=== PATIENT | male | born 1955 | race Caucasian/White ===

== ENCOUNTER 2016-11-07 06:11 | Inpatient (IN) | payer BC ==
[~2016-11-07 06:11] MED LIST: Buffered Lidocaine 1% SYRIN* 3 ML/SYR SYRINGE INTRADERM ONE; Famotidine TAB* 20 MG PO ONE; Gabapentin CAP(*) 400 MG PO ONE; Ibuprofen TAB* 800 MG PO ONE; Metoclopramide TAB* 10 MG PO ONE; Sodium Citrate/Citric Acid* 15 ML UDC PO ONE
[2016-11-07] MEDS ORDERED: Bupivacaine 0.5% W/EPI SDV* 30 ML VIAL ONE (07:53)
[2016-11-07] MEDS ORDERED: Gabapentin CAP(*) 300 MG ONE (07:55)
[2016-11-07] MEDS ORDERED: Ibuprofen TAB* 400 MG ONE (07:55)
[2016-11-07] MEDS ORDERED: Metoclopramide TAB* 10 MG ONE (07:55)
[2016-11-07] MEDS ORDERED: Sodium Citrate/Citric Acid* 15 ML UDC ONE (07:55)
[2016-11-07] MEDS ORDERED: Famotidine TAB* 20 MG ONE (07:55)
[2016-11-07] MEDS ORDERED: ceFAZolin 2 GM PREMIX(*) 2 GM/50 ML BAG IVPB ONE (07:56)
[2016-11-07] MEDS ORDERED: Midazolam* 1 MG/ML 5 ML VIAL (5 MG) ONE (08:59)
[2016-11-07] MEDS ORDERED: fentaNYL* 50 MCG/ML 2 ML VIAL (100 MCG VIAL) ONE (08:59)
[2016-11-07] MEDS ORDERED: Morphine PF AMP (0.5MG/ML)* 5 MG/10 ML AMP ONE (08:59)
[2016-11-07] MEDS ORDERED: Bupivacaine 0.5% SDV PF* 30 ML VIAL ONE (09:00)
[2016-11-07] MEDS ORDERED: Naloxone* 0.4 MG/ML 1 ML VIAL IV PRN (10:11)
[2016-11-07] MEDS ORDERED: HYDROcodone/ACETAMIN 5-325 MG* 1 TAB PO PRN (10:11)
[2016-11-07] MEDS ORDERED: Nalbuphine* 20 MG/ML 1 ML VIAL IV PRN (10:11)
[2016-11-07] MEDS ORDERED: DiMENhydriNATE IV* 50 MG/ML VIAL IV PUSH PRN (10:11)
[2016-11-07] MEDS ORDERED: Ondansetron INJ* 2 MG/ML VIAL IV PRN ×2 (10:11→12:10)
[2016-11-07] MEDS ORDERED: Midazolam* 1 MG/ML 2 ML VIAL (2 MG) ONE (10:55)
[2016-11-07] MEDS ORDERED: Morphine INJ* 2 MG/ML 1 ML SYRINGE IV PRN (12:10)
[2016-11-07] MEDS ORDERED: LACTULOSE* 30 ML UDC PO PRN (12:10)
[2016-11-07] MEDS ORDERED: diPHENhydraMINE IV* 50 MG/ML 1 ml VIAL (BENADRYL) IV PRN (12:10)
[2016-11-07] MEDS ORDERED: Polyethylene Glycol 3350* 17 GM PACKET PO PRN (12:10)
[2016-11-07] MEDS ORDERED: Magnesium Hydroxide LIQ* 30 ML UDC PO PRN (12:10)
[2016-11-07] MEDS ORDERED: Acetaminophen TAB* 325 MG PO PRN (12:10)
[2016-11-07] MEDS ORDERED: oxyCODONE/Acetamin 5/325 MG* TAB PO PRN (12:10)
[2016-11-07] MEDS ORDERED: Acetaminophen TAB* 325 MG ONE (12:56)
--- NOTE | 2016-11-07 13:29 | RAD ---
Indication: Postop LEFT total knee replacement. Comparison: March 29, 2016 Technique: Portable AP and cross table lateral views LEFT knee. Report: Status post total knee replacement. Anterior cutaneous jojo and surgical drain in place. Post-op fluid and gas is seen in the joint space and anterior subcutaneous tissues. Alignment is anatomic. No periprosthetic fracture evident. IMPRESSION: Normal post-op appearance following LEFT total knee replacement.
[2016-11-07] MEDS: Ibuprofen TAB* 800 MG PO SCH ×2 (17:06→21:02)
[2016-11-07] MEDS: Aspirin TAB* 325 MG PO SCH (17:06)
[2016-11-07] MEDS: ceFAZolin 1 GM in Dextrose (*) 1 GM/50 ML BAG IVPB SCH ×2 (17:07→21:03)
[2016-11-07] MEDS: Docusate CAP* 100 MG PO SCH (21:02)
--- NOTE | 2016-11-07 23:35 | OP ---
DATE OF OPERATION: 11/07/16 - ROOM #349 DATE OF : 55 SURGICAL CARE: Left knee. SURGEON: Wicho Corey MD ASSISTANTS: 1. Rachna Burris, therapeutic massage technician. 2. JEAN CARLOS Ye, was the health assistant. ANESTHESIOLOGIST: Dr. Kike Crowe. ANESTHESIA: Spinal with Duramorph IV sedation. PRE-OP DIAGNOSIS: Severe arthritis of the left knee with varus deformity. POST-OP DIAGNOSIS: Severe arthritis of the left knee with varus deformity. OPERATIVE PROCEDURE: Left total knee replacement. COMPONENTS: Venu Persona knee, size 10 femur, size G tibia, 14 articular surface and a 35 patella. There was a small extension on the tibial tray. COMPLICATIONS: There were no complications. DRAINS: Two blood collection drains, left knee, at the end of the case. BLOOD LOSS: 200 mL. REPLACEMENT: Crystalloid fluid. OPERATIVE INDICATION: Severe arthritis of the left knee with deformity. He is no longer responsive to nonoperative care and a knee replacement was recommended. He had severe arthritis medial, patellofemoral and moderate in the lateral compartment. DESCRIPTION OF PROCEDURE: The patient was brought to the operating room and placed on the operating room table in a supine position. Following the administration of the anesthetic, the patient was returned to the supine position. A Rodriguez catheter was inserted. Dorsalis pedis pulse was noted to be 2+ and the left leg was wrapped with proximal thigh tourniquet, which was sealed off and the leg was given a preliminary chlorhexidine prep and then formal ChloraPrep from the tourniquet to the tips of the toes. The patient had some scratch dermatitis on his left friedman, which was treated carefully as we prepped and it was sealed off during the surgery and it was dressed at the end of the case. After prepping, draping, and sealing off, we did our universal protocol time-out confirming Fabian Galo and a plan for knee replacement. We all agreed and we proceeded. The surgical care was done with the knee acutely flexed and without use of the tourniquet until the clean up and cementing phase of the case. The skin incision went from medial aspect of the tibial tubercle to 2 fingerbreadths proximal to the superior pole of the patella. Skin and subcu divided down to the prepatellar bursa. The prepatellar bursa was traversed and the knee was then entered medial parapatellar dividing the quad tendon at the junction of the rectus femoris and the vastus medialis staying as close to vastus medialis muscle as possible going 3 to 4 cm proximal to the superior pole of the patella. The knee had clear goldish synovial fluid. On the tibia, we went down to the bone just medial to the tibial tubercle going medially. We stayed subperiosteally going around to the deep MCL and then to the posterior medial corner of the knee. The remains of the anterior horn medial meniscus were removed. The patient had complete eburnation of bone, medial femoral condyle, medial tibial plateau with scooping out of the medial tibial plateau anteriorly and medially. Patellofemoral joint had severe arthritis and the lateral compartment moderate. Osteophytes were removed from the intercondylar notch, medial and lateral femoral condyles, and the trochlear side of patellofemoral joint. The distal anterior femur was exposed subperiosteally for referencing and measuring. The ACL and PCL were uplifted from their femoral origins and the tibia was made so that it could be subluxated for from under the femur and the PCL was carefully excised. Great care was taken while working posteriorly with careful hemostasis. The lateral meniscus was then carefully excised. The patella was everted. The infrapatellar fat pad was excised and superior synovectomy around the patella and some medial removal of plica and synovium of the knee going into the suprapatellar pouch. The proximal tibial cut was made first. Our goal here was to have a tibial surface that would be perpendicular to the long axis of the tibia and have a slight posterior slope, removing just 1 or 2 mm medially and 10 to 14 mm laterally. The femoral intramedullary drill was then utilized and the femoral canal was suctioned to discourage embolization. The knee had a flexion contracture of 7 to 8 degrees and the distal femoral cutter was placed on 2 and 6 degrees of valgus and the distal femoral cut carefully completed. The femur was then measured. A 10 was chosen and the femoral cutting block was applied and we completed the anterior, posterior, and chamfering cuts on the distal left femur. We then finished removal of the posterior horn lateral meniscus, posterior horn medial meniscus, some posterior osteophyte. The MCL was carefully preserved. At this stage, we had excellent ligamentous balance in flexion with a 14 block and extension with a 14 block, so this was chosen. The femur was then completed with intercondylar cut out. The femoral canal was cleaned x6, suctioned empty, and a bone plug was inserted. The tibia was completed for a size G and the knee was articulated and extended with a g tibia , 14 articular surface, and a 10 femur with full knee extension, stable ligaments in extension, and stable ligaments in 90 degrees of flexion. The patella was cut flat, 35 was then chosen, and three drill holes were made and these were undercut and a lateral release was not necessary. The leg was then exsanguinated. The tourniquet elevated to 275. The knee was cleaned in extension with 3 L of pulsed saline irrigation and cleaned in flexion with 2 L of pulsed saline irrigation. All surfaces were then dried and the cement was mixed and the components were cemented into position, patella followed by tibia followed by femur; each was impacted. Excess cement was removed, and the knee was articulated and extended during the final hardening. We then checked posteriorly for retained cement. These pieces were carefully removed. We irrigated posteriorly with saline and careful hemostasis checked and achieved. The pericapsular structures were infiltrated with Marcaine 0.5% with epinephrine postero-medially, medially, laterally and then more in the skin and subcu medially. As we closed, we irrigated several times with saline. The drains were brought out through superolateral suprapatellar pouch. The quad mechanism closed with interrupted #1 Polysorb in [id number] fashion, the same with medial retinaculum and more distally we used 0 Polysorb in interrupted and then running fashion. The deep fascia bursa closed with 0 Polysorb and then the superficial subcu closed with 3-0 Polysorb with the knee was extended completely and flexed past 130 degrees several times during the closure. The final closure of the skin was done with jojo and the skin was washed and dried and covered with Betadine soaked release and gauze on the surgery and the drain sites and the dressing then Betadine soaked release, sterile gauze, sterile Webril, Cryotherapy cuff, ABD pads, and a 6-inch To bandage loosely applied. The dorsalis pedis pulse was 2+ at the end of the case and the patient was returned to the recovery room in stable and satisfactory condition having tolerated the procedure very well. CC: Dr. Menjivar* [id number]/[facility] #: [id number] MTDD
[2016-11-08] MEDS: ceFAZolin 1 GM in Dextrose (*) 1 GM/50 ML BAG IVPB SCH (03:32)
[2016-11-08] MEDS: oxyCODONE/Acetamin 5/325 MG* TAB PO PRN ×4 (03:36→21:24)
[2016-11-08 06:01] LABS: Hematocrit 33 % (42-52); Hemoglobin 11.1 g/dl (14.0-18.0)
[2016-11-08 06:23] LABS: BUN/Creatinine Ratio 23.1 (8-20); Calcium 8.5 mg/dL (8.6-10.3); EGFR African American 130.1 (>60); EGFR Non-African American 101.2 (>60)
[2016-11-08] MEDS: oxyCODONE TAB* 5 MG TAB PO PRN (07:09)
[2016-11-08] MEDS: Docusate CAP* 100 MG PO SCH ×2 (08:12→21:25)
[2016-11-08] MEDS: Aspirin TAB* 325 MG PO SCH (08:12)
[2016-11-08] MEDS: Vitamin THERAPEUTIC TAB PO SCH (08:12)
[2016-11-08] MEDS ORDERED: Aspirin TAB* 325 MG PO SCH (09:00)
[2016-11-09] MEDS: oxyCODONE/Acetamin 5/325 MG* TAB PO PRN ×2 (00:33→07:07)
[2016-11-09] MEDS: oxyCODONE TAB* 5 MG TAB PO PRN ×2 (03:59→09:59)
[2016-11-09 06:08] LABS: Hematocrit 31 % (42-52); Hemoglobin 10.6 g/dl (14.0-18.0)
[2016-11-09 07:58] VITALS: BP 127/76
[2016-11-09] MEDS: Docusate CAP* 100 MG PO SCH (08:15)
[2016-11-09] MEDS: Aspirin TAB* 325 MG PO SCH (08:15)
[2016-11-09] MEDS: Vitamin THERAPEUTIC TAB PO SCH (08:15)
--- NOTE | 2016-11-09 10:37 | DS ---
Discharge Summary Date of Admission: Date of Discharge: Provider: Dr. Juan C Corey Principle Diagnosis: LEFT knee OA Secondary Diagnoses: See H&P Principle procedure: LEFT total knee arthroplasty Consultations: PT. OT HPI: Refer to H&P Hospital Course: The patient was admitted on 11/07/2016 and underwent a left total knee replacement. He tolerated the procedure well and there were no complications. The patient had spinal anesthesia and was quite comfortable in the immediate postoperative period. On POD#1 the patients H&H was 11.1/33. Dressing was CDI, he was neurovascularly intact with good sensation distal to left knee. He could demonstrate dorsi and plantar flexion with good strength. Participation in physical and occupational therapy was begun. Pain management was controlled adequately with oxycodone. On POD#2 the urinary catheter was discontinued and the patient was able to void spontaneously. The dressing was changed and the wound was found to be benign with minimal drainage and erythema. Vital signs were stable and the patient was afebrile. POD#3 bowel and bladder had normalized and the patient was cleared by physical therapy for safe discharge to home with services. He will continue with the exercises learned with physical therapy and arrangements were made for visiting home physical therapy as well. At discharge the H&H was 10.6/31 and vital signs were stable. The patient was discharged with a prescription for aspirin 325mg daily. The patient will resume the home medications as indicated in the discharge instructions. [place] and/or sutures will be removed in 10-14 days by visiting home nurse. New medications at discharge: Percocet 5/325 mg 1-2 tabs po Q4-6 hours prn pain Aspirin 325mg daily Colace 100 mg 1 po BID Active Medications Generic Name Dose Route Start Last Admin Trade Name Freq PRN Reason Stop Dose Admin Acetaminophen 650 mg 11/07/16 12:10 Tylenol Tab* PO Q4H PRN pain or temp Aspirin 325 mg 11/07/16 13:30 11/09/16 08:15 Aspirin Tab* PO 325 mg DAILY GRUPO Administration Diphenhydramine HCl 25 mg 11/07/16 12:10 Benadryl Iv* IV Q6H PRN itching Docusate Sodium 100 mg 11/07/16 21:00 11/09/16 08:15 Colace Cap* PO 100 mg BID GRUPO Administration Lactated Ringer's 1,000 mls @ 100 mls/hr 05/02/17 13:00 11/08/16 04:55 Lactated Ringers 1000 Ml Bag* IV 100 mls/hr PER RATE GRUPO Administration Lactulose 30 ml 11/07/16 12:10 Lactulose* PO Q6H PRN constipation Magnesium Hydroxide 30 ml 11/07/16 12:10 11/09/16 08:15 Milk Of Magnesia Liq* PO 30 ml Q6H PRN Administration constipation Morphine Sulfate 2 mg 11/07/16 12:10 Morphine Inj (Syringe)* IV Q30H PRN PAIN - UNRELIEVED Multivitamins 1 tab 11/08/16 09:00 11/09/16 08:15 Theragran Tab* PO 1 tab DAILY GRUPO Administration Ondansetron HCl 4 mg 11/07/16 12:10 Zofran Inj* IV Q6H PRN nausea Oxycodone HCl 10 mg 11/07/16 12:10 11/09/16 09:59 Roxycodone Tab* PO 10 mg Q4H PRN Administration PAIN - UNCONTROLLED Oxycodone/Acetaminophen 1 tab 11/07/16 12:10 Percocet 5/325 Tab* PO Q3H PRN PAIN - MODERATE Oxycodone/Acetaminophen 2 tab 11/07/16 12:10 11/09/16 07:07 Percocet 5/325 Tab* PO 2 tab Q3H PRN Administration PAIN - MODERATE TO SEVERE Polyethylene Glycol/Electrolytes 17 gm 11/07/16 12:10 Miralax* PO DAILY PRN Constipation Laboratory Results - last 24 hr 11/08/16 11/09/16 07:47 05:33 Hgb 10.6 L Hct 31 L Hepatitis B Antibody Nonreactive Hep Bs Antigen Nonreactive Hep Bs Antibody, Quant < 3.10 Hepatitis C Antibody Nonreactive Vital Signs Temp 98.0 F 11/09/16 07:31 Pulse 69 11/09/16 07:31 Resp 16 11/09/16 09:59 BP 127/76 11/09/16 07:31 Pulse Ox 92 11/09/16 08:00 Intake & Output 11/08/16 11/09/16 11/09/16 18:59 06:59 18:59 Intake Total 1495 200 360 Output Total 2450 1175 Balance -955 -975 360 Intake: IV Fluids 805 LR 805 Oral 690 200 360 Output: Urine 2250 1175 Rodriguez 200 Other: Estimated Void Medium # Voids 2 Condition: Stable Disposition: Home with home health PT Follow up: Patient will follow up with Dr. Corey in 4-6 weeks at [facility] Orth[facility]ics
[2016-11-09 12:08] LABS: Rapid HIV INT CONT QC Line Present; Rapid HIV Kit Lot# F336002
[2016-11-09 12:09] LABS: Manual Entry Verification GRE0060
== END 2016-11-09 11:45 | disposition home health service (06) | DRG 302 ==
LOC: AA 06:35 → SSU 13:52
PROVIDERS: ADMIT Orthopaedic Surgery; ATTEND Orthopaedic Surgery
PROC: 0SRD0J9 Replacement of Left Knee Joint with Synthetic Substitute, Cemented, Open Approach (ICD-10-PCS; principal; 2016-11-07 09:00)
DX: M17.12 Unilateral primary osteoarthritis, left knee (principal); D62 Acute posthemorrhagic anemia; Z79.82 Long term (current) use of aspirin; Z82.49 Family history of ischemic heart disease and other diseases of the circulatory system; Z87.891 Personal history of nicotine dependence; E66.01 Morbid (severe) obesity due to excess calories; G47.33 Obstructive sleep apnea (adult) (pediatric); M21.162 Varus deformity, not elsewhere classified, left knee; L30.8 Other specified dermatitis; Z68.30 Body mass index [BMI] 30.0-30.9, adult
CPT/HCPCS: 36415; 80048; 85014; 85018; 86703; 86706; 86803; 87340; 88305; 88311; 94760; A9270-GY; J0690; J1240; J2250; J3010

== ENCOUNTER 2017-02-03 18:45 | Observation (INO) | payer BC ==
[2017-02-03] MEDS ORDERED: Ondansetron INJ* 2 MG/ML VIAL ONE (19:26)
[2017-02-03] MEDS ORDERED: NS 0.9% 1000 ML* 1,000 ML IV ONE (19:27)
[2017-02-03] MEDS ORDERED: Ondansetron INJ* 2 MG/ML VIAL IV ONE (19:30)
--- NOTE | 2017-02-03 19:33 | ED ---
Cindy Cali Rebecca, scribed for Alessandra Vicente MD on 02/03/17 at 1924 . Dizziness - HPI Summary HPI Summary: Pt is a 61 y/o M accompanied by his who presents to ED c/o dizziness and N/ V. Sx began tonight at 1800 while looking down, cooking and have been constant since onset. Dizziness characterized as room spinning. Sx aggravated by facing forward, alleviated by head rotated to right with eyes closed. Pt with several episodes of vomiting. Pt was given Zofran administered by EMS en route with little improvement. Additionally c/o fatigue. Pt denies [place], cp, sob. No vision changes other than "everything moving" Denies any numbness, tingling, SOB and any pain. Reports he did not sleep well last night secondary to stress relating to his father's estate. Is not on any blood thinners. No prior similar episodes. reports it is atypical for him to be so fatigued. He fell off a ladder earlier this week but states did not strike his head. No injury. No anticoagulants. PMHx ME in 1996 which he reports was caused by too much caffeine. No PSHx stents. - History Of Current Complaint Chief Complaint: EDDizziness Stated Complaint: DIZZINESS,SYNCOPE Time Seen by Provider: 02/03/17 19:17 Hx Obtained From: Patient Onset/Duration: Still Present Timing: Constant Severity Initially: Severe Severity Currently: Severe Character: Head Spinning, Dizzy Aggravating Factor(s): Position Change, Other - Facing forward Alleviating Factor(s): Closing Eyes, Turning Head Associated Signs And Symptoms: Positive: Nausea, Vomiting. Negative: Chest Pain , SOB - Allergies/Home Medications Allergies/Adverse Reactions: Allergies Allergy/AdvReac Type Severity Reaction Status Date / Time No Known Drug Allergy Allergy Unknown Unknown Verified 02/03/17 19:10 Reaction Details TIDE laundrey soap Allergy Severe Rash Uncoded 02/03/17 19:10 PMH/Surg Hx/FS Hx/Imm Hx Previously Healthy: Yes Endocrine/Hematology History: Denies: Hx Anticoagulant Therapy, Hx Diabetes Cardiovascular History: Reports: Hx Myocardial Infarction - 1996 - excessive caffeine Denies: Hx Coronary Artery Disease Respiratory History: Reports: Hx Sleep Apnea Musculoskeletal History: Reports: Hx Arthritis - knees Sensory History: Reports: Hx Contacts or Glasses Denies: Hx Hearing Aid Opthamlomology History: Reports: Hx Contacts or Glasses - Surgical History Surgery Procedure, Year, and Place: left hand surgery Hx Anesthesia Reactions: No - Immunization History Date of Tetanus Vaccine: unk Date of Influenza Vaccine: none Infectious Disease History: No Infectious Disease History: Denies: Traveled Outside the [place] in Last 30 Days - Family History Known Family History: Positive: Cardiac Disease - Social History Alcohol Use: None Substance Use Type: Reports: None Smoking Status (MU): Former Smoker Amount Used/How Often: pipe, 1ppd. smoked 18 years Review of Systems Positive: Fatigue Positive: Other - spinning ENT: Negative Negative: Chest Pain Negative: Shortness Of Breath Positive: Vomiting, Nausea Genitourinary: Negative Musculoskeletal: Negative Skin: Negative Neurological: Other - Dizziness; Denies tingling Negative: Headache, Numbness Psychological: Normal All Other Systems Reviewed And Are Negative: Yes Physical Exam Triage Information Reviewed: Yes Vital Signs On Initial Exam: Initial Vitals Temp Pulse Resp BP Pulse Ox 96.5 F 64 16 137/82 94 02/03/17 19:03 02/03/17 19:03 02/03/17 19:03 02/03/17 19:03 02/03/17 19:03 Vital Signs Reviewed: Yes Appearance: Positive: No Pain Distress, Ill-Appearing - Pt A+OX3 head right lateral rotation, eyes closed Skin: Positive: Warm, Skin Color Reflects Adequate Perfusion, Dry Head/Face: Positive: Normal Head/Face Inspection Eyes: Positive: Normal, EOMI, JOSE, Conjunctiva Clear, Other: - Pt with left horizontal nystagmus 3 beat, extinguishing to left ENT: Positive: Normal ENT inspection, Hearing grossly normal, Pharynx normal, TMs normal Neck: Positive: Supple, Nontender, No Lymphadenopathy Respiratory/Lung Sounds: Positive: Clear to Auscultation, Breath Sounds Present , Decreased Breath Sounds Cardiovascular: Positive: Normal. Negative: Murmur Abdomen Description: Positive: Nontender, No Organomegaly, Soft Bowel Sounds: Positive: Present Musculoskeletal: Positive: Normal, Strength/ROM Intact Neurological: Positive: Normal, Sensory/Motor Intact, Alert, Oriented to Person Place, Time. Negative: CN Intact II-III - nystagmus to left, horizontal, 3 beats, extinguishing, Receptive Aphasia, Expressive Aphasia, EOM Palsy, Facial Droop, Slurred Speech, Dysphagia Psychiatric: Positive: Normal - pt quiet but easily arousable to voice AVPU Assessment: Alert - Paras Coma Scale Best Eye Response: 4 - Spontaneous Best Motor Response: 6 - Obeys Commands Best Verbal Response: 5 - Oriented Diagnostics - Vital Signs Vital Signs Temp Pulse Resp BP Pulse Ox 02/03/17 19:08 96.5 F 74 16 137/82 94 02/03/17 19:03 96.5 F 64 16 137/82 94 - Laboratory Result Diagrams: 02/04/17 05:45 02/04/17 05:45 Lab Statement: Any lab studies that have been ordered have been reviewed, and results considered in the medical decision making process. - CT Brain CT CT Interpretation: No Acute Changes - Normal CT of the brain. CT Interpretation Completed By: Radiologist - EKG 1915 Cardiac Rate: NL - 61 bpm EKG Rhythm: Sinus Rhythm EKG Interpretation: No acute changes Re-Evaluation - Re-Evaluation First Eval Re-Evaluation Time: 19:53 Change: Improved Comment: No more nausea, still with his eyes closed and head to the right. more alert Second Eval Re-Evaluation Time: 20:07 Comment: Discussed CT results with the pt and his . reports feeling minimally better no futher emesis Third Eval Re-Evaluation Time: 20:41 Comment: Pt reports feeling improved. Still with with eyes closed. requesting water. d/w pt will admit, continue IV hydration Dizzy Course/Dx - Course Assessment/Plan: Pt presents with sudden dizziness, vomiting, and room spinning sensation. pt without other complaints no h./o similar. No pain Pt with nystagmusto left. Will check CT head, labs, IVF, antiemtic, meclizine and reassessment. Will hold valium as pt somewhat somnulent. Of note, during evaluation with with episode of bradycardia to 41 - transiet and self resolved - Diagnoses Provider Diagnoses: Vertigo, Bradycardia - Provider Notifications Discussed Care Of Patient With: Odilon Renteria Time Discussed With Above Provider: 20:36 Instructed by Provider To: Admit As Observation Discharge - Discharge Plan Condition: Good Disposition: ADMITTED TO [facility] The documentation as recorded by the Cindy trevizo Rebecca accurately reflects the service I personally performed and the decisions made by , Alessandra Vicente MD.
--- NOTE | 2017-02-03 20:03 | RAD ---
INDICATION: Dizziness and syncope COMPARISON: None. TECHNIQUE: Contiguous axial sections of the brain were obtained from the skull base to the vertex without contrast. FINDINGS: The ventricles, cisterns and sulci are within normal limits. The gordillo-white matter differentiation is adequately maintained and there is no sulcal effacement. No significant focal abnormality or mass effect is present. There is no evidence for intracranial hemorrhage. No significant focal osseous abnormality is present. The visualized portion of the paranasal sinuses and mastoid air cells appear clear. IMPRESSION: Normal CT of the brain.
[2017-02-03] MEDS ORDERED: Meclizine TAB* 12.5 MG PO ONE (20:06)
[2017-02-03 20:10] LABS: Hematocrit 43 % (42-52); Hemoglobin 13.9 g/dl (14.0-18.0); Mean Corpuscular HGB Conc 33 g/dl (31-36); Mean Corpuscular Hemoglobin 27 pg (27-31); Mean Corpuscular Volume 84 fL (80-94); Mean Platelet Volume 9 um3 (7.4-10.4); Red Blood Count 5.08 10^6/ul (4.0-5.4); Red Cell Distribution Width 16 % (10.5-15); White Blood Count 6.4 10^3/ul (3.5-10.8)
[2017-02-03 20:25] LABS: ALT 16 U/L (7-52); AST 17 U/L (13-39); Albumin 4.1 g/dL (3.2-5.2); Alkaline Phosphatase 54 U/L (34-104); Anion Gap 7 mmol/L (2-11); BUN/Creatinine Ratio 13.1 (8-20); Blood Urea Nitrogen 14 mg/dL (6-24); CO2 Carbon Dioxide 25 mmol/L (22-32); Calcium 9.3 mg/dL (8.6-10.3); Chloride 104 mmol/L (101-111); EGFR African American 90.4 (>60); EGFR Non-African American 70.3 (>60); Globulin 3.3 g/dL (2-4); Glucose 159 mg/dL (70-100); Magnesium 2.1 mg/dL (1.9-2.7); Potassium 4.3 mmol/L (3.5-5.0); Sodium 136 mmol/L (133-145); Total Protein 7.4 g/dL (6.4-8.9)
[2017-02-03 20:28] LABS: Troponin I 0.01 ng/mL (<0.04)
[2017-02-03 20:57] LABS: Alcohol < 10 mg/dL (<10)
[2017-02-03] MEDS ORDERED: Ondansetron INJ* 2 MG/ML VIAL IV PRN (21:36)
[2017-02-03] MEDS ORDERED: Acetaminophen TAB* 325 MG PO PRN (21:36)
[2017-02-03] MEDS ORDERED: Iohexol 350* (CONTRAST) 500 ML MDV IV ONE (21:49)
[2017-02-03] MEDS: Meclizine TAB* 12.5 MG PO SCH (23:56)
[2017-02-03] MEDS: Heparin VIAL(*) 5000 UNITS/ML VIAL (FIVE THOUSAND) SUBCUT SCH (23:57)
[2017-02-04] MEDS: NS 0.9% 1000 ML* 1,000 ML IV SCH ×2 (00:28→09:07)
--- NOTE | 2017-02-04 04:56 | HP ---
CC: Dr. Ware* HISTORY AND PHYSICAL: DATE OF ADMISSION: 02/03/17 PRIMARY CARE PROVIDER: Dr. Ware. ATTENDING PHYSICIAN WHILE IN THE HOSPITAL: Odilon Renteria MD * (report dictated by Javi Montoya NP) CHIEF COMPLAINT: Dizziness. HISTORY OF PRESENTING ILLNESS: Mr. Galo is a 61-year-old male patient who presents today with no past medical history. He comes in today stating that he was cooking and all of a sudden he developed a sudden onset of dizziness, felt like the room was spinning. worse with position and head change. He felt nauseated. He felt that any time he moved or got up, he was going to faint because he felt so dizzy, felt like the room was spinning. He denied having any symptoms of headache. He had no palpitations or chest pain or any shortness of breath. No weaknesses to one side. No trouble with speech. No trouble with coordination. The symptoms were concerning. He was becoming very nauseated. He vomited. He denied having any recent URI symptoms, no ringing in his ears. He denies having any recent ear pain or ear discharge. He states he had no recent vomiting or diarrhea. He said he was feeling well in the days leading up to this, but because of the dizziness and the fact that it was quite severe and came on suddenly, he came into the ER, was evaluated and there was concern for possible CVA versus vertigo, so the hospitalist service was asked to evaluate for admission. PAST MEDICAL HISTORY: Benign. PAST SURGICAL HISTORY: He has had a left total knee replacement in November 2016. He has had a hand surgery. HOME MEDICATIONS: Ibuprofen, he takes 1200 mg twice a day as needed. ALLERGIES TO MEDICATIONS: Include no known drug allergies. FAMILY HISTORY: His mother had an [place]. Father had intracranial hemorrhage from aneurysm. His sister had an aneurysm and his great grandfather also had aneurysms in the brain as well. SOCIAL HISTORY: He does not smoke. He does not drink. His surrogate decision maker is his . REVIEW OF SYSTEMS: There is no documented fever. He denied having any significant weight change. There was no double vision. He denies having any ear discharge. There is no rhinorrhea. No sore throat or thyroid enlargement. Denies having any chest pain. There is no orthopnea. There is no nocturnal dyspnea. Denies having any abdominal pain. There is no nausea, no vomiting. No dysuria. No frequency. There was no loss of consciousness. No pruritus and no skin ulcerations. Review of 14 systems was completed, all others are negative. PHYSICAL EXAMINATION GENERAL: Mr. Galo is a 61-year-old male patient. He appears to be well developed, well nourished. He is sitting in the ER stretcher. He does not appear to be in any acute distress. VITAL SIGNS: Blood pressure 127/77, pulse 60, respirations 16, O2 sat 94%, and temperature 96.5. HEENT: Head is atraumatic. Eyes: Sclerae anicteric, not pale. Throat: Oral mucosa appears to be moist. No oropharyngeal erythema. NECK: Supple. LUNGS: Clear to auscultation bilaterally. No wheezes, rales or rhonchi. HEART: Sounds S1, S2. Regular rate and rhythm. No murmurs, rubs, or gallops. ABDOMEN: Soft, flat, nontender. Bowel sounds present. EXTREMITIES: Pulses are 2+ throughout. He is able to move all 4 extremities with 5/5 strength. NEUROLOGIC: The patient is awake, alert and oriented to x3. His tongue is midline. His geriatric assistant were equal. Ogaccc-na-hnoy is intact bilaterally. Heel-to - friedman intact bilaterally. He did have nystagmus noted bilaterally. On exam he had no other gross focal deficits. SKIN: Grossly intact. DIAGNOSTIC STUDIES/LABORATORY DATA: Labs today revealed a WBC of 6.4, RBC of 5.08, hemoglobin 13.9, hematocrit of 43, platelet count of 133,000. His sodium was 136, potassium of 4.3, chloride of 104, bicarb 25, BUN 14, creatinine 1.07, glucose 159, calcium 9.3, mag 2.1, total bili 0.4, AST 17, ALT 16, alk phos 54, troponin 0.01, albumin of 4.1. Toxicology was negative. He did have a brain CT obtained today, which revealed normal CT of the brain. He had an EKG obtained today as well, which revealed a normal sinus rhythm, rate of 61. He had no ST elevation or T-wave inversion, no previous for comparison. Old medical records reviewed. ASSESSMENT AND PLAN: Mr. Galo is a 61-year-old male patient who is relatively healthy coming into the ER today with complaints of sudden onset of dizziness. We will admit the patient under observation status for; 1. Dizziness. I suspect this is probably vertigo. I am going to put him on p.r.n. meclizine. He did have nystagmus noted on exam, he is improved and he said any time he stopped moving his head, the dizziness went away. However, I would like to get a CTA of his head and neck given the family history of aneurysms. In addition to this, would like to try to get an MRI if possible. The MRI probably can be done as an outpatient, I am touching base with Neurology. I will get neuro checks on the patient every [address] him on telemetry. We will continue to follow him. I am holding on aspirin currently, pending CTA. We will continue to monitor. 2. Arthritis. He can follow up with his primary. 3. DVT prophylaxis, placed on heparin subcutaneously. 4. Code status: Full code. 5. Fluids, electrolytes, nutrition: He can have a regular diet. TIME SPENT: Time spent on this admission was approximately 60 minutes, greater than half the time spent [id number] with the patient obtaining my history and physical, the other half of the time was spent going over the plan of care with the patient and implementing plan of care. I did discuss the plan of care with my attending, Dr. Renteria, he is in agreement. JAVI MONTOYA NP [id number]/[facility] #: [id number] DARLYN
[2017-02-04 06:06] LABS: Hematocrit 39 % (42-52); Hemoglobin 12.9 g/dl (14.0-18.0); Mean Corpuscular HGB Conc 33 g/dl (31-36); Mean Corpuscular Hemoglobin 27 pg (27-31); Mean Corpuscular Volume 84 fL (80-94); Mean Platelet Volume 9 um3 (7.4-10.4); Red Blood Count 4.71 10^6/ul (4.0-5.4); Red Cell Distribution Width 16 % (10.5-15); White Blood Count 5.7 10^3/ul (3.5-10.8)
[2017-02-04 06:21] LABS: BUN/Creatinine Ratio 16.2 (8-20); Calcium 8.7 mg/dL (8.6-10.3); EGFR African American 98.8 (>60); EGFR Non-African American 76.9 (>60); HDL Cholesterol 33.9 mg/dL
[2017-02-04] MEDS: Meclizine TAB* 12.5 MG PO SCH (06:22)
[2017-02-04] MEDS: Heparin VIAL(*) 5000 UNITS/ML VIAL (FIVE THOUSAND) SUBCUT SCH (06:22)
[2017-02-04 07:49] VITALS: BP 116/71
--- NOTE | 2017-02-04 11:12 | DCNOTE ---
Patient seen this morning. Wants to go home immediately or would like to sign AMA paperwork. No further dizziness since CT scan in ED. On exam, RRR, s1 and s2 present, no m/g/r, abd soft, NTND, BS+, CN II-XII, 5/5 strength throughout B/L UEs and LEs, sensation intact and symmetric. Patient would like to go home now. Will talk with Dr. Ware about outpatient MRI. Will rx prn meclizine.
--- NOTE | 2017-02-04 11:50 | RAD ---
INDICATION: Dizziness COMPARISON: Chest x-ray dated October 25, 2016 TECHNIQUE: Single AP portable view of the chest was obtained. FINDINGS: Image quality is compromised due to the relative inferiority of a portable chest x-ray. The heart and mediastinum exhibit normal size and contour. The lungs are grossly clear. There is no evidence of a large pleural effusion. Visualized bones are normal for the patient's age. IMPRESSION: No radiographic evidence for acute cardiopulmonary abnormality on this portable chest x-ray.
--- NOTE | 2017-02-04 12:09 | RAD ---
CPT II: CPT II Codes: 3100F INDICATION: Dizziness COMPARISON: CT of the brain February 03, 2017 acquired at 1940 hours that did not reveal any acute abnormalities TECHNIQUE: A CT angiogram of the head and neck was performed with 80 cc of Omnipaque 350. Contiguous axial sections were obtained from the thoracic inlet through the [place] of [place]. Images were reconstructed in the sagittal, coronal planes and in a 3-D volume rendered format. The distal cervical internal carotid artery diameter is used as the denominater for stenosis measurement. CTA NECK: The common and internal carotid arteries are patent without hemodynamically significant stenosis. Right: Immediately below the carotid bifurcation the common carotid artery measures 7 mm in diameter at the carotid bifurcation the short access diameter is 8 mm. This yields approximately 0% stenosis at the carotid bulb. Left: Immediately below the carotid bifurcation the common carotid artery measures 8 mm in diameter at the carotid bifurcation the short access diameter is 9 mm. This yields approximately 0% stenosis at the carotid bulb. The vertebral arteries are patent without gross abnormality. CTA of the brain: The internal carotid, anterior and middle cerebral arteries appear are patent without high grade stenosis or occlusion. The vertebral, basilar and posterior cerebral arteries appear patent without high grade stenosis or occlusion. Bilaterally the posterior communicating arteries are extremely diminutive but appear to be present. No focal luminal filling defect, aneurysm or vascular malformation is seen. NON-ARTERIAL FINDINGS: The lung apices exhibit centrilobular emphysematous changes with multiple subpleural blebs, the largest adjacent to the medial margin of the left upper lobe. In the right lobe of the thyroid there is a 13 mm hypodense nodule with a Hounsfield unit greater than that of a simple cyst. Degenerative changes of the cervical spine includes loss of intervertebral disc height and marginal osteophyte formation most severely affecting C5-C7. IMPRESSION: 1. Normal CT arteriography of the head and neck without focal occlusion or other acute arterial abnormality. 2. At the right lobe of the thyroid there is a 13 mm hypodense nodule greater than that of a simple cyst. If clinically warranted further characterization can be made with nonemergent ultrasound of the thyroid.
--- NOTE | 2017-02-05 12:26 | DS ---
CC: Dr. Ware * DISCHARGE SUMMARY: DATE OF ADMISSION: 02/03/17 DATE OF DISCHARGE: 02/04/17 PRIMARY CARE PHYSICIAN: Dr. Ware. PRINCIPAL DISCHARGE DIAGNOSIS: Vertigo. STUDIES DONE DURING HOSPITALIZATION: 1. CT of the brain. Impression: Normal CT of the brain. 2. CTA of the head: Pending final read by Dr. Orozco but overnight [facility] read did not show any evidence of significant aneurysm or stenosis. DISCHARGE MEDICATION REGIMEN: 1. Meclizine 12.5 mg every 8 hours as needed for vertigo. 2. Ibuprofen p.r.n. HISTORY OF PRESENT ILLNESS AND HOSPITAL SUMMARY: Please see the full history and physical by Javi Montoya NP, for full details. Briefly, Mr. Galo is a 61-year- old man with no significant past medical history, who presented to the hospital with sudden onset of dizziness, sensation of the room spinning associated with some nausea and vomiting. He came to the emergency department. It was felt that this was most likely vertigo, but the patient had a family history of brain aneurysms, so decision was made to monitor the patient, get a CTA of the head and neck, which was done. The patient's symptoms resolved in the emergency department. It did not recur. The following morning, I was notified that the patient wanted to leave immediately or he would pull out his IV access and leave AMA. At the time, our final in-house radiology read of the CTA of the head and neck was not in yet, but the patient was refused to stay for this. He will be sent with a prescription for meclizine and follow up with Dr. Ware as an outpatient. They can consider whether the patient needs an MRI, although this seems most likely to just be benign paroxysmal positional vertigo. TIME SPENT: Total time spent on this discharge 40 minutes. This is a summary of the hospitalization. Please see the full medical record for further details. [id number]/[facility] #: [id number] [facility]
== END 2017-02-04 11:50 | disposition home or self-care (01) ==
LOC: ED 18:45 → MEDTELE 21:35
PROVIDERS: ADMIT Internal Medicine; ATTEND Hospitalist
DX: R42 Dizziness and giddiness (principal); R11.2 Nausea with vomiting, unspecified; Z82.3 Family history of stroke; H55.00 Unspecified nystagmus; M19.90 Unspecified osteoarthritis, unspecified site; E04.1 Nontoxic single thyroid nodule; Z79.899 Other long term (current) drug therapy
CPT/HCPCS: 36415; 70450; 70496; 70498; 71010; 80048; 80053; 80061; 80320; 83036; 83735; 84484; 85025; 93005; 94760; 96361; 96372; 96374; 99284; A9270-GY; G0378; G0480; J1644; J2405; Q9967

== ENCOUNTER 2017-10-09 05:49 | Inpatient (IN) | payer BC ==
--- NOTE | 2017-09-27 03:53 | HP ---
HISTORY AND PHYSICAL: DATE OF ADMISSION: 10/09/17 CHIEF COMPLAINT: Right knee pain, swelling, and deformity. HISTORY OF PRESENT ILLNESS: This 62-year-old man has had severe arthritis of his right knee for the past couple of years and he has been living with it. He has used antiinflammatories. He has had cortisone injections and he has had a left total knee replacement. He has now gotten to the point where he cannot live with the right knee arthritis as this and we have recommended a right total knee replacement. PAST MEDICAL HISTORY: He is cared for by Dr. Ware who recently cleared him for the surgical care. He does not smoke. He does not drink. He has not had any cancers. No history of DVT or pulmonary embolism. His left total knee replacement was done in November 2016. No drug allergies. DAILY MEDICATION: He uses ibuprofen for the right knee as necessary. PHYSICAL EXAMINATION GENERAL: On current examination, well nourished, well developed, not acutely distressed. He is not acutely distressed. He has a limp on the right. VITAL SIGNS: His height is 71 inches, weight 205 pounds, blood pressure 138/82 , the temp is 97.1. HEENT: Head is NC/AT. LUNGS: Clear to auscultation bilaterally. CARDIAC: The heart is regular. S1, S2, normal. No murmurs or gallops. ABDOMEN: Round, soft, nontender. There is no organomegaly or tenderness. EXTREMITIES: The right knee has a lateral thrusting with weightbearing. Right knee extension -5 degrees, flexion 120 degrees, dorsalis pedis pulses 2+ on right. The right knee has varus with stable MCL, LCL. Normal [place]amaria and posterior drawer. The right knee and leg as described above. NEUROLOGIC: Cranial nerves are grossly intact. IMPRESSION: Severe arthritis of the right knee with varus malalignment. PLAN: Right total knee replacement. Goals, risks and complications of the surgical care have been reviewed with the patient in the office and his questions were answered. [id number]/[facility] #: [id number] DARLYN
[~2017-10-09 05:49] MED LIST changes: +Buffered Lidocaine 0.9% SYRIN* 5 ML/SYR SYRINGE INTRADERM ONE; -Buffered Lidocaine 1% SYRIN* 3 ML/SYR SYRINGE INTRADERM ONE; -Famotidine TAB* 20 MG PO ONE; -Gabapentin CAP(*) 400 MG PO ONE; -Ibuprofen TAB* 800 MG PO ONE; -Metoclopramide TAB* 10 MG PO ONE; -Sodium Citrate/Citric Acid* 15 ML UDC PO ONE
--- OUTSIDE RECORDS SUMMARY | 2017-10-09 05:53 | XMS REPORT ---
:1955 External Reference #:[id number] Author Organization [facility] Address [address] [address] Phone [phone] Care Team Providers Name Role Phone Wilmar Ware MD Primary Care Physician Unavailable Payers Type Date Identification Numbers Payment Provider Subscriber Commercial Effective: Policy Number: [employer] [place] Mcgarry III 2011 [id number] PayID: [id number] [address] [address] [place] [address] Problems Date Description Provider Status Onset: 07/18/2017 Arthroplasty of knee Wicho Corey M.D. Active Onset: 07/18/2017 Localized, primary osteoarthritis Wicho Corey M.D. 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 017 needed for pain Aspirin Hx Tablets 325mg 30tabs take 1 by Dirk 017 - mouth once a Madhav, day for 1 M.D. 017 month [facility] Stool Hx Capsules 100mg 60caps one tablet Dirk Softener 017 - every 12 Madhav, hours while M.D. 017 taking narcotic medication Medications Administered in Office Medication Date Status Form Strength Qnty SIG Indications Ordering Provider Depomedrol Administered Injection Dirk Madhav, 40MG 017 M.D. Depomedrol Administered Injection Dirk Madhav, 40MG 017 M.D. Depomedrol Administered Injection Dirk Madhav, 40MG 017 M.D. Depomedrol Administered Injection Dirk Madhav, 40MG 016 M.D. Depomedrol Administered Injection Dirk Madhav, 40MG 016 M.D. Depomedrol Administered Injection Dirk Madhav, 40MG 016 M.D. Depomedrol Administered Injection Dirk Madhav, 40MG 016 M.D. Depomedrol Administered Injection Dirk Madhav, 80MG 015 M.D. Depomedrol Administered Injection Dirk Madhav, 80MG 015 M.D. Vital Signs Date Vital Result Comment 09/26/2017 Height 71 inches 5'11" Weight 205.00 lb BP Systolic 138 mmHg BP Diastolic 82 mmHg Respiratory Rate 20 /min Body Temperature 97.1 F Pain Level 8 BMI (Body Mass Index) 28.6 kg/m2 07/18/2017 Height 71 inches 5'11" Weight 205.00 lb BP Systolic 124 mmHg BP Diastolic 82 mmHg Respiratory Rate 18 /min Body Temperature 97.8 F Pain Level 8 BMI (Body Mass Index) 28.6 kg/m2 05/21/2017 Height 71 inches 5'11" Weight 205.00 lb Heart Rate 56 /min BP Systolic Sitting 150 mmHg BP Diastolic Sitting 90 mmHg Respiratory Rate 16 /min BMI (Body Mass Index) 28.6 kg/m2 01/03/2017 Height 71 inches 5'11" Weight 216.00 lb Heart Rate 65 /min BP Systolic 145 mmHg BP Diastolic 87 mmHg Body Temperature 97.6 F BMI (Body Mass Index) 30.1 kg/m2 11/20/2016 Height 71 inches 5'11" Weight 216.00 lb Heart Rate 74 /min BP Systolic 162 mmHg BP Diastolic 90 mmHg Body Temperature 97.4 F BMI (Body Mass Index) 30.1 kg/m2 10/25/2016 Height 71 inches 5'11" Weight 223.00 lb Heart Rate 61 /min BP Systolic 135 mmHg BP Diastolic 83 mmHg Respiratory Rate 16 /min BMI (Body Mass Index) 31.1 kg/m2 07/24/2016 Height 70 inches 5'10" Weight 224.00 lb Respiratory Rate 18 /min Pain Level 10 BMI (Body Mass Index) 32.1 kg/m2 03/29/2016 Height 70 inches 5'10" Weight 224.00 lb Pain Level 5 BMI (Body Mass Index) 32.1 kg/m2 09/27/2015 Height 70 inches 5'10" Weight 198.00 lb Pain Level 10 BMI (Body Mass Index) 28.4 kg/m2 04/14/2015 Height 70 inches 5'10" Weight 198.00 lb Pain Level 9 BMI (Body Mass Index) 28.4 kg/m2 09/30/2014 Height 70 inches 5'10" Weight 198.00 lb Heart Rate 63 /min BP Systolic 145 mmHg BP Diastolic 90 mmHg Pain Level 8 BMI (Body Mass Index) 28.4 kg/m2 Results Test Date Test Result H/L Range Note CBC Auto Diff 10/25/2016 White Blood Count 4.8 10^3/uL 3.5-10.8 Red Blood Count 5.05 10^6/uL 4.0-5.4 Hemoglobin 14.5 g/dL 14.0-18.0 Hematocrit 44 % 42-52 Mean Corpuscular Volume 87 fL 80-94 Mean Corpuscular Hemoglobin 29 pg 27-31 Mean Corpuscular HGB Conc 33 g/dL 31-36 Red Cell Distribution Width 14 % 10.5-15 Platelet Count 147 10^3/uL Low 150-450 Mean Platelet Volume 10 um3 7.4-10.4 Abs Neutrophils 2.8 10^3/uL 1.5-7.7 Abs Lymphocytes 1.2 10^3/uL 1.0-4.8 Abs Monocytes 0.5 10^3/uL 0-0.8 Abs Eosinophils 0.2 10^3/uL 0-0.6 Abs Basophils 0.1 10^3/uL 0-0.2 Abs Nucleated RBC 0 10^3/uL Granulocyte % 58.6 % 38-83 Lymphocyte % 24.8 % Low 25-47 Monocyte % 10.1 % High 1-9 Eosinophil % 4.9 % 0-6 Basophil % 1.6 % 0-2 Nucleated Red Blood Cells % 0.1 Urinalysis Profile 10/25/2016 Urine Color Yellow Urine Appearance Clear Urine Specific [place] 1.018 1.010-1.030 Urine pH 6.0 5-9 Urine Urobilinogen Negative Negative Urine Ketones Negative Negative Urine Protein Negative Negative Urine Leukocytes Negative Negative Urine Blood Negative Negative Urine Nitrite Negative Negative Urine Bilirubin Negative Negative Urine Glucose Negative Negative Inr/Protime 10/25/2016 Inr 0.90 0.89-1.11 Laboratory test finding 10/25/2016 Partial Thrombo Time 29.6 seconds 26.0 -36.3 PTT Comp Metabolic Panel 10/25/2016 Sodium 137 mmol/L 133-145 Potassium 4.4 mmol/L 3.5-5.0 Chloride 106 mmol/L 101-111 Co2 Carbon Dioxide 25 mmol/L 22-32 Anion Gap 6 mmol/L 2-11 Glucose 99 mg/dL 70-100 Blood Urea Nitrogen 16 mg/dL 6-24 Creatinine 0.93 mg/dL 0.67-1.17 BUN/Creatinine Ratio 17.2 8-20 Calcium 9.5 mg/dL 8.6-10.3 Total Protein 7.2 g/dL 6.4-8.9 Albumin 4.4 g/dL 3.2-5.2 Globulin 2.8 g/dL 2-4 Albumin/Globulin Ratio 1.6 1-3 Total Bilirubin 0.40 mg/dL 0.2-1.0 Alkaline Phosphatase 53 U/L 34-104 Alt 21 U/L 7-52 Ast 19 U/L 13-39 Egfr Non- 82.6 >60 Egfr 106.2 >60 1 Type & Screen 10/25/2016 Patient Blood Type B Positive Antibody Screen NEGATIVE Urine Culture And Sensitivities 10/25/2016 Urine Culture SEE RESULT BELOW 2 1 Because ethnic data is not always readily available, this report includes an eGFR for both -Americans and non- Americans. The National Kidney Disease Education Program (NKDEP) does not endorse the use of the MDRD equation for patients that are not between the ages of 18 and 70, are , have extremes of body size, muscle mass, or nutritional status, or are non- or non-. According to the National Kidney Foundation, irrespective of diagnosis, the stage of the disease is based on the level of kidney function: Stage Description GFR(mL/min/1.73 m(2)) 1 Kidney damage with normal or decreased GFR 90 2 Kidney damage with mild decrease in GFR 60-89 3 Moderate decrease in GFR 30-59 4 Severe decrease in GFR 15-29 5 Kidney failure <15 (or dialysis) 2 SEE RESULT BELOW Name: MONIKA MCGARRYEVELIN AGUIRRE : [address]: Wicho Corey MD Acct: [id number] Unit: [id number] AGE: 61 Location: [facility] Re10/25/16 SEX: M Status: REG REF SPEC: [id number] CARMEN: 10/25/16-[address] [facility] [address]: Wicho Corey MD REQ: [id number] RECD: 10/25/16 STATUS: [facility] DR: Wilmar Ware MD _ SOURCE: URINE SPDESC: ORDERED: Urine Culture QUERIES: Urine Source: Random Procedure Result Reported Site Urine Culture Final 10/26/16- 0750 ML No Growth (<1,000 CFU/mL) * ML - MAIN LAB ([facility]) . END OF REPORT * ML=Testing performed at Main Lab DEPARTMENT OF PATHOLOGY, [address] [place] [address] Jimmy Arreaga M.D. Director [facility] # [id number] Procedures Date CPT Code Description Status 05/21/201703592 Inject/Drain Joint/Bursa Major Completed 11/07/201622613 TKR Total Knee Replacement Completed 11/07/201696182 TKR Total Knee Replacement Completed 07/24/2016 Inject/Drain Joint/Bursa Major Completed 03/29/2016 Inject/Drain Joint/Bursa Major Completed 09/27/201559963 Inject/Drain Joint/Bursa Major Completed 04/14/2015 Inject/Drain Joint/Bursa Major Completed 09/30/2014 Inject/Drain Joint/Bursa Major Completed Encounters Type Date Location Provider CPT E/M Dx Office Visit 07/18/2017 8:15a [facility] M.D. 75137 M17.11 C.M.ANi Z96.652 Office Visit 02/04/2017 3:48p [facility], [place] [address] R42 Hospitalists R11.2 Office Visit 02/03/2017 3:48p [facility], [place], [address] R42 Hospitalists N.P. R11.2 Office Visit 07/24/2016 8:30a [facility] M.D. 27265 M17.0 C.M.A. Office Visit 03/29/2016 9:15a [facility] M.D. 38071 M17.0 C.M.A. Office Visit 09/30/2014 1:30p [facility] M.D. 60446 716.96 C.M.A. 715.36 Plan of Care Future Appointment(s):10/09/2017 7:30 am - [facility] Corey M.D. at [facility]10/22/2017 8:15 am - Wicho Corey M.D. at [facility]
[2017-10-09] MEDS ORDERED: celeCOXIB CAP* 100 MG ONE (05:57)
[2017-10-09] MEDS ORDERED: Dexamethasone IV* 4 MG/ML 1 ML (4 MG) ONE (05:57)
[2017-10-09] MEDS ORDERED: Famotidine IV* 10 MG/ML 2 ML (20 mg) ONE (05:57)
[2017-10-09] MEDS ORDERED: ceFAZolin 2 GM PREMIX (*) 2 GM/50 ML BAG IVPB ONE (05:58)
[2017-10-09] MEDS ORDERED: Gabapentin CAP(*) 300 MG ONE (05:58)
[2017-10-09] MEDS ORDERED: Famotidine IV* 10 MG/ML 2 ML (20 mg) IV ONE (06:00)
[2017-10-09] MEDS ORDERED: Dexamethasone IV* 4 MG/ML 1 ML (4 MG) IV SLOW PU ONE (06:00)
[2017-10-09] MEDS ORDERED: celeCOXIB CAP* 200 MG PO ONE (06:00)
[2017-10-09] MEDS ORDERED: Gabapentin CAP(*) 300 MG PO ONE (06:00)
[2017-10-09] MEDS ORDERED: Acetaminophen IV 1GM/100ML * 1,000 MG/100 ML VIAL IVPB ONE (06:00)
[2017-10-09] MEDS ORDERED: Acetaminophen IV 1GM/100ML * 100 ML ONE (06:02)
[2017-10-09] MEDS ORDERED: Bupivacaine 0.5%* 50 ML VIAL ONE (07:02)
[2017-10-09] MEDS ORDERED: fentaNYL* 50 MCG/ML 2 ML VIAL (100 MCG VIAL) ONE (07:07)
[2017-10-09] MEDS ORDERED: Midazolam* 1 MG/ML 5 ML VIAL (5 MG) ONE (07:07)
[2017-10-09] MEDS ORDERED: ROPIVACAINE 5 MG/ML 30 ML BTL (0.5%) ONE (07:24)
[2017-10-09] MEDS ORDERED: Lidocaine 1% MPF wEPI 200,000* 30 ML SDV ONE (08:39)
[2017-10-09] MEDS ORDERED: fentaNYL* 50 MCG/ML 2 ML VIAL (100 MCG VIAL) IV PRN (09:25)
[2017-10-09] MEDS ORDERED: DiMENhydriNATE IV* 50 MG/ML VIAL IV PUSH PRN (09:25)
[2017-10-09] MEDS ORDERED: Naloxone* 0.4 MG/ML 1 ML VIAL IV PRN (09:25)
[2017-10-09] MEDS ORDERED: HYDROmorphone INJ* 1 MG/ML CARPUJECT SYRINGE IV PRN (09:25)
[2017-10-09] MEDS ORDERED: Ondansetron INJ* 2 MG/ML VIAL IV PRN ×2 (09:25→10:54)
[2017-10-09] MEDS ORDERED: Ondansetron INJ* 2 MG/ML VIAL ONE (10:06)
[2017-10-09] MEDS ORDERED: Bupivacaine 0.5% SDV PF* 10-30ML VIAL ONE (10:06)
[2017-10-09] MEDS ORDERED: Glycopyrrolate IV* 0.2 MG/ML 1 ML VIAL ONE (10:06)
[2017-10-09] MEDS ORDERED: EPHEDrine (Pressors)* 50 MG/ML VIAL ONE (10:06)
[2017-10-09] MEDS ORDERED: Propofol* 10 MG/ML 20 ML BTL IV PUSH ONE (10:06)
[2017-10-09] MEDS ORDERED: Morphine VIAL* 4 MG/ML VIAL (1 ml vial) IV PRN (10:54)
[2017-10-09] MEDS ORDERED: oxyCODONE/Acetamin 5/325 MG* TAB PO PRN (10:54)
[2017-10-09] MEDS ORDERED: Morphine INJ* 2 MG/ML 1 ML CARPUJECT IV PRN (10:54)
[2017-10-09] MEDS ORDERED: Ondansetron TAB* 4 MG PO PRN (10:54)
[2017-10-09] MEDS ORDERED: Bisacodyl SUPP* 10 MG SUPP PR PRN (10:54)
[2017-10-09] MEDS ORDERED: diPHENhydraMINE IV* 50 MG/ML 1 ml VIAL (BENADRYL) IV PRN (10:54)
[2017-10-09] MEDS ORDERED: Acetaminophen TAB* 325 MG PO PRN (10:54)
[2017-10-09] MEDS ORDERED: Magnesium Hydroxide LIQ* 30 ML UDC PO PRN (10:54)
[2017-10-09] MEDS ORDERED: Meclizine TAB* 12.5 MG PO PRN (11:10)
--- NOTE | 2017-10-09 11:26 | RAD ---
HISTORY: Unilateral primary osteoarthritis COMPARISONS: September 26 VIEWS: 2, Frontal and lateral views of the right knee FINDINGS: BONE DENSITY: Normal. BONES: The patient is status post right knee arthroplasty. There is no hardware failure or osteolysis. JOINTS: The patient is status post right knee arthroplasty. ALIGNMENT: There is no dislocation. SOFT TISSUES: There is postsurgical change to the soft tissue. OTHER FINDINGS: None. IMPRESSION: STATUS POST RIGHT KNEE ARTHROPLASTY
[2017-10-09] MEDS ORDERED: oxyCODONE TAB* 5 MG TAB ONE (12:31)
[2017-10-09] MEDS: oxyCODONE TAB* 5 MG TAB PO PRN ×3 (12:32→20:00)
[2017-10-09] MEDS: Cyclobenzaprine TAB* 10 MG PO PRN ×2 (14:40→20:00)
[2017-10-09] MEDS: oxyCODONE/Acetamin 5/325 MG* TAB PO PRN ×3 (14:40→22:46)
[2017-10-09] MEDS: ceFAZolin 1 GM in Dextrose (*) 1 GM/50 ML BAG IVPB SCH ×2 (16:15→23:59)
[2017-10-09] MEDS: Magnesium Hydroxide LIQ* 30 ML UDC PO SCH (20:00)
[2017-10-09] MEDS: Docusate CAP* 100 MG PO SCH (20:00)
[2017-10-10] MEDS: oxyCODONE/Acetamin 5/325 MG* TAB PO PRN ×3 (03:05→11:05)
--- NOTE | 2017-10-10 03:33 | OP ---
DATE OF OPERATION: 10/09/17 - ROOM #341 DATE OF : 55 SURGICAL CARE: Left knee. SURGEON: Wicho Corey MD ASSISTANTS: JEAN CARLOS Pradhan; she was the first officer. Rachna Burris, surgical instrument mechanic as well. ANESTHESIOLOGIST: Dr. Wilmar Mallory. ANESTHESIA: Right thigh adductor block and spinal anesthetic, IV sedation. PRE-OP DIAGNOSIS: Severe arthritis of the right knee with varus malalignment. POST-OP DIAGNOSIS: Severe arthritis of the right knee with varus malalignment. OPERATIVE PROCEDURE: Left total knee replacement. COMPONENTS UTILIZED: Venu Persona Knee size 9 femur and 35 patella and F tibia and 13 articular surface. COMPLICATIONS: There were no complications. DRAINS: Two drains, right knee at the end of the case. BLOOD LOSS: 200 mL. REPLACEMENT: Crystalloid fluids. OPERATIVE INDICATIONS: Severe knee arthritis that has been no longer responsive to nonoperative care. He has had this arthritis for several years and the knee replacement was recommended. DESCRIPTION OF PROCEDURE: The patient was brought to the operating room and placed on the operating room table in a supine position. Following the administration of the anesthetic, the right thigh block and the spinal anesthetic, he was returned to the supine position. A Rodriguez catheter was inserted. The right dorsalis pedis pulse was noted to be 2+. The right proximal thigh was wrapped with a tourniquet and the right leg was given a preliminary chlorhexidine prep in the region of surgery and then a formal ChloraPrep from the tourniquet to the tips of the toes. After prepping, draping , and sealing off, we did our universal protocol time-out confirming Fabian Galo and the plan for right total knee replacement. We all agreed and we proceeded. Surgical care was done without tourniquet until the clean- up and cementing phase of the case. The surgical care was done with the knee acutely flexed with the right foot on a padded foot piece. The skin and subcutaneous tissues were opened from the medial aspect of the tibial tubercle to 2 fingerbreadths proximal to the superior pole of the patella. Careful hemostasis was checked and achieved throughout the case utilizing electrocautery. The skin and subcu divided. The prepatellar bursa was traversed. The knee was entered medial parapatellar dividing the soft tissues on the tibia down to the bone just medial to the tibial tubercle going up to the medial joint line medial patella and then the quad mechanism divided at the junction of the rectus femoris and vastus medialis tendon staying as close to vastus medialis muscle as possible going 4 cm proximal to the superior pole of the patella. The knee had abundant clear straw- colored synovial fluid. The patient had complete eburnation on the medial femoral condyle, medial tibial plateau, large osteophytes on both medial condylar osteophytes and patellar osteophytes as well. The anteromedial soft tissues on the tibia were elevated subperiosteally going around to the deep MCL and then to the posteromedial corner of the knee. The remainder of the anterior horn medial meniscus was carefully excised. Peripatellar synovectomy including the infrapatellar fat pad was excised. The distal anterior femur was exposed subperiosteally for referencing and measuring after removing the superior osteophytes from the trochlea. The lateral meniscus was carefully excised taking care to keep hemostasis at the periphery of the lateral meniscus. The intercondylar osteophytes were removed. The ACL and PCL were uplifted from their femoral origins. The tibia was made so it could be subluxated forward from under the femur and then the PCL was carefully excised. Great care was taken while working posteriorly and careful hemostasis. The proximal tibial cut was made first and this was to correct varus. The tibial cut goal was to have a slight posterior slope on the tibia and to have a surface that would be perpendicular to the long axis of the tibia removing a couple of millimeters on the medial side and a centimeter on the lateral side. The femoral intramedullary drill was then utilized and the femoral canal was suctioned to discourage embolization. The distal femoral cutting guide was applied on one with 6 degrees of valgus and the distal femoral cuts were completed. We had a satisfactory extension gap at this stage with a 12 mm block. The femur was then measured for a size 9 and the anterior and posterior and chamfering cuts were completed. We then finished removal of the posterior horn lateral meniscus , the PCL, posterior horn medial meniscus and osteophyte on the posteromedial femoral condyle and at this stage, we had nice ligamentous balance and flexion of 90 degrees and extension with a 13 mm block and 13 was chosen. The femoral intercondylar cut was then completed and anchoring holes. The femoral canal was cleaned x6 with pulsed saline, suction emptied and bone plug was inserted. The tibia was then completed for a size F and the knee was articulated and extended with an F tibia 13 articular surface and a size 9 femur with full knee extension, stable ligaments in extension and stable ligaments in 90 degrees of flexion. The patella was cut flat and the 35 was chosen. Three drill holes were made. These were undercut and tiny bit of excess cartilage was excised. A lateral release was not necessary. The leg was then exsanguinated. The final components were opened. The knee was then cleaned in extension with pulsed saline 2 to 3 L and suction emptied and dried and careful hemostasis achieved. The knee was then cleaned in flexion with retractors in place and all the bony surfaces were cleaned with pulsed saline and then lap sponges were applied. All surfaces were dried completely. The cement was mixed and the components were cemented into position, patella followed by tibia, followed by femur. Each was impacted. Excess cement was removed and the knee was articulated and extended during the final hardening. We then deflated the tourniquet. We infiltrated the posteromedial periarticular structure with Marcaine 0.5% and Xylocaine with epinephrine mixture and we used 40 mL of this mixture posteromedial, medial, lateral and some in the joint as we closed. Careful hemostasis was achieved during closure. We irrigated several times during closure and the knee was extended completely and flexed, passed 130 degrees several times during closure. The quad mechanism was reapproximated with interrupted #1 poly Vicryl sutures in [id number] fashion. The same was the medial retinaculum. Distally, we used 0 Vicryl. The deep bursa was closed with interrupted 0 Vicryl and then the super-ficial subcu closed with interrupted 3-0 Vicryl and the skin was closed with jojo. The skin was washed and dried and then covered with Betadine- soaked release. Two drains were brought out through superolateral suprapatellar pouch and these were dressed with Betadine-soaked release and gauze and then sterile Webril. The dressing was completed with a cryotherapy cuff, ABD pads, and a 6-inch To bandage loosely applied. The right dorsalis pedis pulse was 2+ at the end of the case. The patient was returned to the hospital bed into the recovery room in stable and satisfactory condition having tolerated the procedure very well. [id number]/[facility] #: [id number] MTDD
[2017-10-10] MEDS: oxyCODONE TAB* 5 MG TAB PO PRN ×4 (03:58→12:53)
[2017-10-10] MEDS: Cyclobenzaprine TAB* 10 MG PO PRN ×2 (04:55→12:53)
[2017-10-10 06:05] LABS: Hematocrit 32 % (42-52); Hemoglobin 10.6 g/dl (14.0-18.0); Mean Platelet Volume 9.1 um3 (7.4-10.4); Platelet Count 134 10^3/ul (150-450)
[2017-10-10 06:23] LABS: EGFR Non-African American 84.4 (>60)
--- NOTE | 2017-10-10 07:19 | PN ---
Progress Note - Progress Note Date of Service: 10/10/17 Note: Feeling very well. Right knee pain is nil. No Chest pain or SOB. In 4200, out 4400. Temp 98.7. Pulse has a regular irregularity. 2 drains removed from the right knee, dressing is dry. He is able to straight leg raise. DP pulse is 2 plus. H/H 10.6/32%. Impression: Stable and acute blood loss anemia. He thinks he may have had cardiac irregularity but I believe he means bradycardia. I spoke with Dr. Cassidy and the service will check him and new EKG and the preop one. Plans: Up with walker. New EKG and action as needed.
[2017-10-10] MEDS: ceFAZolin 1 GM in Dextrose (*) 1 GM/50 ML BAG IVPB SCH (07:32)
[2017-10-10] MEDS: Docusate CAP* 100 MG PO SCH (08:52)
[2017-10-10] MEDS: Magnesium Hydroxide LIQ* 30 ML UDC PO SCH (08:52)
[2017-10-10] MEDS ORDERED: Aspirin TAB* 325 MG PO SCH (12:00)
--- NOTE | 2017-10-10 12:01 | CONSULT ---
Consult Consult: Please see full dictated note for full consult. Patient seen and evaluated for irregular HR. EKG showing Sinus rhythm with Bigeminy PACs which is benign. Mg+ level check and is normal. no further orders. Ok to DC patient to home today. Discussed case with Dr. Cassidy who agrees with the plan of care.
[2017-10-10 13:16] VITALS: BP 149/74
--- NOTE | 2017-10-10 16:29 | CONS ---
CC: Dr. Ware * CONSULTATION REPORT: DATE OF CONSULT: 10/10/17 PROVIDER: Jeri Valencia NP ATTENDING PHYSICIAN: Alana Cassidy MD (report dictated by Jeri Valencia NP). PRIMARY CARE PROVIDER: Dr. Ware. ORTHOPEDIC SURGEON: Dr. Corey. REASON FOR CONSULT: Irregular heart rate. HISTORY OF PRESENT ILLNESS: Mr. Galo is a 62-year-old male with a past medical history of severe arthritis of the right knee who is status post total right knee replacement yesterday on 10/09/17. The patient was noted to have an irregular heart rate this morning and EKG was obtained, which showed sinus rhythm with PACs with bigeminy. The patient is asymptomatic and does not have any complaints of chest pain, shortness of breath. Asked by orthopaedic service to consult on the patient regarding his irregular heart rate. The patient was seen and evaluated at the bedside. He was found to be sitting up on the chair, visiting with his . The patient offers no complaints and reports that his knee pain is well controlled. The plan is for the patient to be discharged home this afternoon. He reports he was seen by his primary care provider Dr. Ware earlier today and discussed irregular heart rate which there was no concern. The patient is unsure if he has history of bigeminy in the past. PAST MEDICAL HISTORY: 1. Severe osteoarthritis. 2. History of vertigo. HOME MEDICATIONS: Ibuprofen for knee pain. CURRENT MEDICATIONS: 1. Acetaminophen 650 mg p.o. q. 4 hours p.r.n. 2. Aspirin 325 mg p.o. daily. 3. Dulcolax suppository. 4. Flexeril 10 mg p.o. t.i.d. p.r.n. 5. Benadryl 0.5 mg IV q. 6 hours p.r.n. 6. Colace 100 mg p.o. b.i.d. 7. Milk of mag p.r.n. 8. Meclizine 12.5 mg p.o. q. 8 hours p.r.n. 9. Morphine 4 mg IV q. 2 hours p.r.n. 10. Zofran 4 mg p.o. q. 6 hours p.r.n. 11. Oxycodone 10 mg p.o. q. 4 hours p.r.n. 12. Percocet 5/325 mg 1 to 2 tabs p.o. q. 4 hours p.r.n. FAMILY HISTORY: Reviewed and noncontributory. SOCIAL HISTORY: The patient denies tobacco abuse. Occasional alcohol use. Currently lives at home with his who is his healthcare proxy. REVIEW OF SYSTEMS: A 14-point review of systems was performed. All the pertinent positives and negatives are mentioned in the history of present illness. Otherwise, negative. PHYSICAL EXAM: Vital Signs: Temperature 97.9, heart rate 70, respirations 18, pulse oximetry 94% on room air, blood pressure 104/53. General Appearance: Well developed 62-year-old male, sitting up in the chair, in no acute distress. HEENT: Head is normocephalic, atraumatic. Neck: Supple. No JVD noted. Cardiac: S1 and S2. Occasional PACs noted on auscultation. No murmur noted. No lower extremity edema noted. Lungs: Clear to auscultation bilaterally. Good aeration throughout. Extremities: No clubbing, cyanosis, or edema noted. Neurologic: Alert and oriented x3. ASSESSMENT AND PLAN: Mr. Galo is a 62-year-old male with past medical history of severe osteoarthritis of the knee, that is now status post total knee replacement, history of vertigo who noted to have an irregular heart rate this morning and hospitalist was asked for consult. Irregular heart rate. As stated in the HPI, the patient was noted to have an EKG with noted bigeminy. This is a benign arrhythmia. No further orders at this time. Dr. Ware is aware and spoke to the patient this morning and will follow up with the patient as an outpatient. The patient's magnesium level was checked, which was noted to be 2.1, within normal limits. No further orders at this time. Thank you very much for asking Hospital Medicine to consult. Please notify in the future if you have any further questions. The patient is stable for discharge home. TIME SPENT: Approximately 45 minutes was spent on this consultation. JERI VALENCIA, JOHANN [id number]/[facility] #: [id number] [facility] HOSPITALAmisha
--- NOTE | 2017-10-12 09:16 | DS ---
DISCHARGE SUMMARY: DATE OF ADMISSION: 10/09/17 DATE OF DISCHARGE: DATE OF SURGERY: 10/09/17 PROVIDER: Wicho Corey MD CATERPILLAR MECHANIC: JEAN CARLOS Wallace and Rachna Burris, refrigerator repair technician. PRE-OP DIAGNOSIS: Severe arthritis of the right knee with valgus malalignment. OPERATIVE PROCEDURE: Right total knee arthroplasty. HISTORY: Mr. Trujillo is a 62-year-old male with severe right knee arthritis that has been no longer r esponsive to nonoperative care. He has elected for a right total knee arthroplasty on 10/09/17. HOSPITAL COURSE: The patient was admitted to [facility] on 10/09/17. He underwent a right total knee arthroplasty without complication. He recovered briefly in the PACU and then was transfe rred in stable condition to the short-stay surgical unit. On postop day 1, he was well appearing, in no acute distress. Two drains were removed from his right knee with tips intact without complicatio n. Dressing was clean, dry, and intact. The patient was able to do a straight leg raise. Dorsalis p getachew pulses 2+. Vital signs include temperature 97.9, pulse rate 70, respiratory rate 17, oxygen sat uration 94, blood pressure 149/74. Laboratory studies: Hemoglobin 10.6, hematocrit 32, platelet cou nt 134. The patient was deemed to be medically and orthopedically stable for discharge. Before dis charging the patient, his dressing was changed. The incision was clean, dry, and intact with well ap proximated wound edges. No erythema. No discharge. DISCHARGE MEDICATIONS: He will resume meclizine 12.5 mg p.o. q.8 hours p.r.n. At home his new medications at discharge include: 1. Acetaminophen 650 mg p.o. q.4 hours p.r.n. max daily dose of 4000 mg from all sources. 2. Aspirin 325 mg p.o. daily for 30 days. 3. Docusate 100 mg p.o. b.i.d. p.r.n. constipation. 4. Oxycodone/acetaminophen 5/325 one to 2 tabs every 4 to 6 hours as needed for pain, max daily dose of 10. DISCHARGE PLAN: The patient will be weightbearing as tolerated. He will shower after postop day 2. He will not submerge his wound. He will resume a regular diet. Visiting home nurse will remove the jojo in 10 to 12 days as well as do wound checks. Aspirin 325 mg daily for 30 days will be taken to prevent blood clots. He will use Percocet 5/325 one to 2 tabs every 4 to 6 hours as needed for p ain control, max daily dose of 10 tabs. He will follow up with Dr. Corey within 4 to 6 weeks for his first postoperative appointment, to return with any concern. His prescriptions are at [facility] in [facility]. JEAN CARLOS WALLACE [id number]/[facility] #: [id number]
== END 2017-10-10 14:28 | disposition home health service (06) | DRG 302 ==
LOC: AA 05:49 → SSU 12:09
PROVIDERS: ADMIT Orthopaedic Surgery; ATTEND Orthopaedic Surgery
PROC: 0SRC0J9 Replacement of Right Knee Joint with Synthetic Substitute, Cemented, Open Approach (ICD-10-PCS; principal; 2017-10-09 07:30)
DX: M17.11 Unilateral primary osteoarthritis, right knee (principal); D62 Acute posthemorrhagic anemia; Z96.652 Presence of left artificial knee joint; E66.9 Obesity, unspecified; M25.761 Osteophyte, right knee; M21.161 Varus deformity, not elsewhere classified, right knee; I49.1 Atrial premature depolarization; Z72.89 Other problems related to lifestyle; Z87.891 Personal history of nicotine dependence; Z68.30 Body mass index [BMI] 30.0-30.9, adult
CPT/HCPCS: 36415; 80048; 83735; 85014; 85018; 85049; 93005; 94760; A9270-GY; C1776; J0690; J1100; J2001; J2250; J2405; J2704; J2795; J3010